=== PATIENT | male | born 1970 | race Caucasian/White ===

== ENCOUNTER 2018-05-02 19:48 | Emergency (ER) | payer OTHER ==
[2018-05-02] MEDS ORDERED: methylPREDNISolone Sod Succ/PF 125 MG/2 ML VIAL ONE (20:33)
== END 2018-05-02 21:25 | disposition home or self-care (01) ==
LOC: ERS 19:48
DX: M54.42 Lumbago with sciatica, left side (principal); F31.9 Bipolar disorder, unspecified; F17.210 Nicotine dependence, cigarettes, uncomplicated; E78.5 Hyperlipidemia, unspecified; X50.1XXA Overexertion from prolonged static or awkward postures, initial encounter
CPT/HCPCS: 96372; J2270; J2930

== ENCOUNTER 2018-10-19 13:16 | Outpatient (CLI) | payer OTHER ==
--- NOTE | 2018-10-19 15:36 | RAD ---
RADIOGRAPH LUMBAR SPINE 2 VIEWS: 10/19/2018 HISTORY: A 48-year-old male with low back pain. COMPARISON: 10/20/2012 FINDINGS: Weight-bearing frontal and lateral views. There are five lumbar type vertebrae. Again demonstrated is the grade 2 anterolisthesis of L5 on S1, due to bilateral pars interarticularis defects. There is severe disk space narrowing at L5-S1, worse than previously. The rest of the disk spaces are mainta ined. Vertebral body heights are maintained. There are multiple surgical clips in the abdominal cav ity. IMPRESSION: 1. Grade 2 spondylolisthesis at L5-S1 due to bilateral L5 spondylolysis. 2. Severe degenerative disk disease at L5-S1. ALEXIA [] POS: [email or web address]
== END 2018-10-19 13:17 | disposition home or self-care (01) ==
LOC: BICRAD 13:16
PROVIDERS: ATTEND Internal Medicine
DX: Z02.71 Encounter for disability determination (principal); M43.17 Spondylolisthesis, lumbosacral region; M51.37 Other intervertebral disc degeneration, lumbosacral region
CPT/HCPCS: 72100

== ENCOUNTER 2018-11-19 19:12 | Emergency (ER) | payer OTHER ==
[2018-11-19] MEDS ORDERED: Proparacaine 0.5% Opth 15 ML BOT ONE (19:42)
[2018-11-19] MEDS ORDERED: Fluorescein Opthalmic Strip ONE (19:42)
--- NOTE | 2018-11-19 19:45 | RAD ---
THREE VIEWS LEFT WRIST: 11/19/18 COMPARISON: None. HISTORY: Left wrist pain for eight days. FINDINGS: Three views of the left wrist shows no evidence of acute fracture or dislocation. No soft tissue swel ling is seen. No degenerative changes are present. IMPRESSION: Unremarkable exam. POS: [facility]
== END 2018-11-19 20:00 | disposition home or self-care (01) ==
LOC: ERS 19:12
DX: T15.02XA Foreign body in cornea, left eye, initial encounter (principal); S60.211A Contusion of right wrist, initial encounter; E78.5 Hyperlipidemia, unspecified; F17.210 Nicotine dependence, cigarettes, uncomplicated; F31.9 Bipolar disorder, unspecified; W22.8XXA Striking against or struck by other objects, initial encounter
CPT/HCPCS: 29125; 65220

== ENCOUNTER 2019-03-26 13:12 | Emergency (ER) | payer OTHER ==
[2019-03-26] MEDS ORDERED: Lidocaine 1% (PF) 30 ML VIAL ONE (13:46)
--- NOTE | 2019-03-26 13:48 | RAD ---
Radiograph right second digit 3 views: HISTORY: Laceration injury FINDINGS: No fracture, dislocation, or radiopaque foreign body of index finger IMPRESSION: Negative
[2019-03-26] MEDS ORDERED: Adacel (T-DAP) 0.5 ML SYRINGE ONE (14:31)
[2019-03-26] MEDS ORDERED: Bacitracin Zinc 1 Packet ONE (14:40)
== END 2019-03-26 15:01 | disposition home or self-care (01) ==
LOC: ERS 13:12
DX: S61.210A Laceration without foreign body of right index finger without damage to nail, initial encounter (principal); E78.5 Hyperlipidemia, unspecified; F31.9 Bipolar disorder, unspecified; F17.210 Nicotine dependence, cigarettes, uncomplicated; Z23 Encounter for immunization; W26.9XXA Contact with unspecified sharp object(s), initial encounter
CPT/HCPCS: 12013; 90471; 90715; J2001

== ENCOUNTER 2021-01-31 16:25 | Emergency (ER) | payer OTHER ==
[2021-01-31] MEDS ORDERED: Ketorolac Tromethamine 30 MG/ML VIAL ONE (18:03)
== END 2021-01-31 18:20 | disposition home or self-care (01) ==
LOC: ERS 16:25
DX: S83.91XA Sprain of unspecified site of right knee, initial encounter (principal); E78.5 Hyperlipidemia, unspecified; E78.00 Pure hypercholesterolemia, unspecified; F17.210 Nicotine dependence, cigarettes, uncomplicated; X50.0XXA Overexertion from strenuous movement or load, initial encounter
CPT/HCPCS: 96372; J1885

== ENCOUNTER 2021-02-05 15:51 | Emergency (ER) | payer OTHER ==
[2021-02-05] MEDS ORDERED: Ketorolac Tromethamine 30 MG/ML VIAL ONE (19:05)
== END 2021-02-05 19:15 | disposition home or self-care (01) ==
LOC: ERS 15:51
DX: M23.91 Unspecified internal derangement of right knee (principal); E78.5 Hyperlipidemia, unspecified; E78.00 Pure hypercholesterolemia, unspecified; F17.210 Nicotine dependence, cigarettes, uncomplicated; X50.1XXA Overexertion from prolonged static or awkward postures, initial encounter
CPT/HCPCS: 96372; J1885

== ENCOUNTER 2021-08-31 12:10 | Emergency (ER) | payer OTHER ==
[2021-08-31 17:27] LABS: SARS-CoV-2 PCR by NAA DETECTED (NotDetected)
== END 2021-08-31 12:40 | disposition home or self-care (01) ==
LOC: ERS 12:10
DX: U07.1 COVID-19 (principal)
CPT/HCPCS: 99283; U0003; U0005

== ENCOUNTER 2021-09-11 10:28 | Emergency (ER) | payer OTHER ==
[2021-09-11] MEDS ORDERED: Albuterol 200 PUFF (6.7GM INHALER) ONE (11:08)
== END 2021-09-11 12:26 | disposition home or self-care (01) ==
LOC: ERS 10:28
DX: U07.1 COVID-19 (principal); J20.9 Acute bronchitis, unspecified; E78.5 Hyperlipidemia, unspecified; E78.00 Pure hypercholesterolemia, unspecified
CPT/HCPCS: 71046; 94664

== ENCOUNTER 2022-04-30 18:35 | Emergency (ER) | payer OTHER ==
[2022-04-30] MEDS ORDERED: Lidocaine 1% PF 5 ML VIAL ONE (19:09)
[2022-04-30] MEDS ORDERED: Bacitracin 1 PK ONE (19:56)
== END 2022-04-30 20:16 | disposition home or self-care (01) ==
LOC: ERS 18:35
DX: S61.217A Laceration without foreign body of left little finger without damage to nail, initial encounter (principal); X58.XXXA Exposure to other specified factors, initial encounter
CPT/HCPCS: 12001